=== PATIENT | male | born 1975 | race Caucasian/White ===

== ENCOUNTER → 2020-09-03 | Outpatient (CLI) | payer OTHER ==
[~2020-09-03] MED LIST: 0.9 % SODIUM CHLORIDE 10 ML DISP.SYRIN. ID ONE; GADOTERATE 5 MMOL/10ML VIAL. INT ART ONE; IOHEXOL 300 MG/ML 50 ML VIAL. INT ART ONE; LIDOCAINE 1% Multi-Dose 20 ML VIAL. ID ONE
--- NOTE | 2020-09-03 14:20 | KCIC ---
FLUOROSCOPICALLY GUIDED RIGHT SHOULDER ARTHROGRAM 1. INDICATION: The patient is a 45 years old Male who presented with right shoulder pain and decreased range of motion. 2. CONSENT: The risks, benefits, treatment options, potential complications and personnel to be involved were discussed (including the risks of radiation exposure, instruments to be used, contrast and anesthesia administration) with the patient. All questions were answered and consent was obtained. The patient indicated willingness to proceed. 3. GENERAL: a) Medication Reconciliation: The patient's medications and allergies were reviewed in the electronic medical record and reconciled to the proposed procedure/treatment. b) Positioning: The patient was placed Supine on the fluoroscopy table. c) The shoulder was then sterilely prepped and draped. d) Time Out: A time out was performed immediately prior to procedure start with the nursing, anesthesia and interventional team, correctly identifying the patient name, date of , procedure, anatomy (including marking of site and side), patient position, procedure consent form, relevant diagnostic and radiology test results, antibiotic administration, safety precautions, and procedure-specific equipment needs. Procedure Start Time / Timeout Time: 13:30 e) Anesthesia Type: Local anesthesia: 2 mL 1% Lidocaine 4. PROCEDURE: a) Procedure Details: A 20g spinal needle was inserted into the shoulder joint. 1 mL Omnipaque 300 was injected to confirm intra-articular placement of needle. Contrast was observed to flow into the intra-articular space of the joint without significant resistance. 12 mL of injectate was administered into the joint . The needle was removed. Images were stored to the permanent digital archive documenting needle position. b) Injectate Contents: 0.2 mL Dotarem 20 mL Normal Saline c) Estimated Blood Loss: 0 mL RADIATION DOSE: Fluoroscopic Radiation Summary: Fluoro time: 0:06 min:sec POST PROCEDURE: a) Hemostasis: Hemostasis was achieved using light manual compression. b) Procedure End Time: 13:37 c) Conclusion: The patient was discharged from the radiology department in stable condition. COMPLICATIONS: a) Significant Patient Complication: None If other, explain: b) Complications during the procedure: None If other, explain: 5. RESULTS: Contrast was injected into the joint. 6. IMPRESSION: SUCCESSFUL FLUOROSCOPICALLY GUIDED ARTHROGRAM OF THE RIGHT SHOULDER DESCRIBED ABOVE. Electronically signed by: Woody Stinson DO (09/03/2020 2:17 PM) [id number]
--- NOTE | 2020-09-03 15:11 | KCIC ---
EXAMINATION: MR ARTHROGRAM RIGHT SHOULDER CLINICAL HISTORY: Right shoulder pain, pain on abduction/internal/external rotation. TECHNIQUE: MRI shoulder arthrogram protocol. Procedural portion of the arthrogram reported separately. COMPARISON: None FINDINGS: LABRUM: Small nondisplaced anterior inferior labral tear only seen on ABER view. Posterior and inferior labral degeneration with degenerative tearing in the superior posterior labrum. TENDONS: - Supraspinatus: Mild to moderate tendinosis without tear. - Infraspinatus: Mild tendinosis without tear. - Subscapularis: Intact. - Teres minor: Intact. - Biceps Tendon: Long head biceps tendon intact and appropriately located. MUSCLES: Rotator cuff muscle bulk and signal intensity within normal limits. GLENOHUMERAL JOINT: No full-thickness chondral defect visualized. ACROMIOCLAVICULAR JOINT: Within normal limits. BONES/MARROW: No evidence of acute fracture or suspicious marrow replacing process. IMPRESSION: Small nondisplaced anterior inferior labrum tear. Posterior and inferior labral degeneration with with degenerative tearing in the superior posterior labrum. Mild to moderate rotator cuff tendinosis without full-thickness tear. Electronically signed by: Woody Stinson DO (09/03/2020 3:08 PM) [id number]
== END ==
LOC: KCIC 12:41
PROVIDERS: ATTEND Family Medicine
DX: S43.491A Other sprain of right shoulder joint, initial encounter (principal); X58.XXXA Exposure to other specified factors, initial encounter; Y93.89 Activity, other specified; Y92.89 Other specified places as the place of occurrence of the external cause; Y99.8 Other external cause status
CPT/HCPCS: 23350; 73040; 73222; A9575; J3490; Q9967; 77002

== ENCOUNTER → 2022-02-27 | Outpatient (CLI) | payer OTHER ==
--- NOTE | 2022-02-27 12:30 | KCIC ---
MRI BRAIN WO Date: 02/27/2022 9:50 AM Indication: MEMORY LOSS, TENSION HEADACHE. Short term memory loss and headaches 1 yr. Comparison: None. Technique: Multiplanar multisequence MRI of the brain was performed without intravenous contrast usin g the standard protocol. Findings: No acute infarct. No acute or chronic hemorrhage. The ventricles are normal in size and configuration without hydrocephalus. The scalp and calvarium are normal. The pituitary and sella are normal. No Chiari malformation. The v isualized upper cervical spine is normal. The visualized orbits and globes are normal. Mild maxillary sinus mucosal thickening. Air-fluid level in the right maxillary sinus. The mastoid air cells are clear. Normal flow voids within the vertebral, basilar, and internal carotid arteries indicating patency. IMPRESSION: 1. No acute intracranial process. 2. Mild bilateral maxillary sinus mucosal thickening, with air-fluid level on the right which could r epresent acute sinusitis in the proper clinical setting. Electronically signed by: Kaz Shirley MD (02/27/2022 12:27 PM) [id number]
== END ==
LOC: KCIC MRI 09:07
PROVIDERS: ATTEND Psychiatry & Neurology Neurology with Special Qualifications in Child Neurology
DX: G44.209 Tension-type headache, unspecified, not intractable (principal); R41.3 Other amnesia
CPT/HCPCS: 70551